=== PATIENT | female | born 1990 | race Two or more races ===

== ENCOUNTER 2018-02-09 13:11 | Inpatient (IN) | payer SELFPAY ==
[2018-02-09] MEDS ORDERED: LACTATED RINGER'S 1,000 ML IV (14:04)
[2018-02-09] MEDS: LACTATED RINGER'S 1,000 ML IV ×2 (14:10→17:35)
[2018-02-09 14:13] LABS: ADD MAN DIFF? NO
[2018-02-09 14:18] LABS: ABNORMAL IP MESSAGE 1; BASOPHILS % 0.3 % (0.0-2.0); EOSINOPHILS % 0.6 % (0.0-7.0); HEMATOCRIT 37.6 % (37.0-47.0); HEMOGLOBIN 11.9 g/dl (12.0-16.0); LYMPHOCYTES # 0.8 10^3/ul (0.8-2.9); LYMPHOCYTES % 12.5 % (15.0-51.0); MEAN CORPUSCULAR HEMOGLOBIN 21.8 pg (29.0-33.0); MEAN CORPUSCULAR HGB CONC 31.6 g/dl (32.0-37.0); MEAN PLATELET VOLUME 12.9 fl (7.4-10.4); MONOCYTE # 0.4 10^3/ul (0.3-0.9); MONOCYTES % 5.2 % (0.0-11.0); NEUTROPHIL # 5.5 10^3/ul (1.6-7.5); NEUTROPHILS % 80.8 % (39.0-77.0); PLATELET COUNT 213 10^3/UL (140-415); POSITIVE DIFF @See below; RED BLOOD COUNT 5.45 10^6/ul (4.20-5.40); RED CELL DISTRIBUTION WIDTH 14.3 % (11.5-14.5)
[2018-02-09 14:18] LABS: WHITE BLOOD COUNT 6.7 10^3/ul (4.8-10.8)
[2018-02-09] MEDS ORDERED: OXYTOCIN 30 UNITS/LR 500 ML IV ×3 (14:30→20:30)
[2018-02-09] MEDS ORDERED: CARBOPROST 250 MCG INJ IM ×2 (14:30→20:30)
[2018-02-09] MEDS ORDERED: HYDROCODONE/APAP (5/325) TAB PO (14:30)
[2018-02-09] MEDS ORDERED: MISOPROSTOL 200 MCG TAB PR ×2 (14:30→20:30)
[2018-02-09] MEDS ORDERED: METHYLERGONOVINE 0.2 MG INJ IM ×2 (14:30→20:30)
[2018-02-09 14:42] LABS: INR 0.85; PROTIME 11.7 Sec (11.9-14.9); PT RATIO 0.9
[2018-02-09 14:43] LABS: PARTIAL THROMBOPLASTIN TIME 24.7 Sec (25.0-35.0)
[2018-02-09 17:58] LABS: HEPATITIS B SURFACE ANTIGEN NEGATIVE (NEGATIVE)
[2018-02-09 18:23] LABS: HIV 1&2 ANTIBODY NEGATIVE (NEGATIVE)
[2018-02-09] MEDS ORDERED: BUTORPHANOL 2 MG INJ (18:24)
[2018-02-09] MEDS: BUTORPHANOL 2 MG INJ IV (18:29)
[2018-02-09] MEDS ORDERED: IBUPROFEN 600 MG TAB PO (20:30)
[2018-02-09] MEDS ORDERED: METHYLERGONOVINE 0.2 MG TAB PO (20:30)
[2018-02-09] MEDS ORDERED: ACETAMINOPHEN 325 MG TAB PO (20:30)
[2018-02-09] MEDS ORDERED: DIBUCAINE 1% 30 GM OINT PR (20:30)
[2018-02-09] MEDS ORDERED: ONDANSETRON 4 MG INJ IV (20:30)
[2018-02-09] MEDS: OXYTOCIN 30 UNITS/LR 500 ML IV ×2 (20:32→20:33)
[2018-02-09] MEDS: LIDOCAINE 1% (MPF) 30 ML INJ INJ ×2 (20:33→20:34)
[2018-02-09] MEDS: SENNA/DOCUSATE NA (8.6MG/50MG) TAB PO (23:28)
[2018-02-09] MEDS: LANOLIN 7 GM TUBE TOP (23:29)
[2018-02-09] MEDS: BENZOCAINE 20% 56 ML SPRAY TOP (23:29)
[2018-02-09] MEDS: WITCH HAZEL/GLYCERIN PAD PR (23:30)
[2018-02-10] MEDS: LACTATED RINGER'S 1,000 ML IV ×3 (00:58→21:26)
[2018-02-10] MEDS: HYDROCODONE/APAP (5/325) TAB PO ×2 (02:13→12:52)
[2018-02-10] MEDS: SENNA/DOCUSATE NA (8.6MG/50MG) TAB PO ×2 (08:58→21:26)
[2018-02-10 11:34] LABS: ADD MAN DIFF? NO
[2018-02-10 11:41] LABS: WHITE BLOOD COUNT 8.1 10^3/ul (4.8-10.8)
[2018-02-10 11:41] LABS: ABNORMAL IP MESSAGE 1; BASOPHILS % 0.2 % (0.0-2.0); EOSINOPHILS % 0.4 % (0.0-7.0); HEMATOCRIT 33.5 % (37.0-47.0); HEMOGLOBIN 10.5 g/dl (12.0-16.0); LYMPHOCYTES # 0.9 10^3/ul (0.8-2.9); LYMPHOCYTES % 10.9 % (15.0-51.0); MEAN CORPUSCULAR HEMOGLOBIN 21.6 pg (29.0-33.0); MEAN CORPUSCULAR HGB CONC 31.3 g/dl (32.0-37.0); MEAN CORPUSCULAR VOLUME 69.1 fl (82.0-101.0); MEAN PLATELET VOLUME 13.1 fl (7.4-10.4); MONOCYTE # 0.4 10^3/ul (0.3-0.9); MONOCYTES % 4.9 % (0.0-11.0); NEUTROPHIL # 6.7 10^3/ul (1.6-7.5); NEUTROPHILS % 82.9 % (39.0-77.0); PLATELET COUNT 185 10^3/UL (140-415); RED BLOOD COUNT 4.85 10^6/ul (4.20-5.40); RED CELL DISTRIBUTION WIDTH 14.2 % (11.5-14.5)
[2018-02-10 11:45] LABS: POSITIVE DIFF @See below
[2018-02-10] MEDS: BENZOCAINE 20% 56 ML SPRAY TOP (12:52)
[2018-02-10 22:20] LABS: RAPID PLASMA REAGIN NONREACTIVE (NR)
[2018-02-11] MEDS: IBUPROFEN 600 MG TAB PO (02:52)
[2018-02-11] MEDS: LACTATED RINGER'S 1,000 ML IV (06:04)
[2018-02-11] MEDS: SENNA/DOCUSATE NA (8.6MG/50MG) TAB PO (09:42)
== END 2018-02-11 16:45 | disposition home or self-care (01) | DRG 775 ==
LOC: OBT 13:11 → L-D 13:12 → OBT 13:45 → L-D 13:45 → PP1 22:03
PROVIDERS: Obstetrics & Gynecology
PROC: 10E0XZZ Delivery of Products of Conception, External Approach (ICD-10-PCS; principal; 2018-02-09)
PROC: 0KQM0ZZ Repair Perineum Muscle, Open Approach (ICD-10-PCS; 2018-02-09)
DX: O99.284 Endocrine, nutritional and metabolic diseases complicating childbirth (principal); E03.9 Hypothyroidism, unspecified; O70.1 Second degree perineal laceration during delivery; Z37.0 Single live birth; Z3A.39 39 weeks gestation of pregnancy
CPT/HCPCS: 85025; 85610; 85730; 86592; 86703; 86850; 86900; 86901; 87340; 99464